=== PATIENT | female | born 1950 | race Caucasian/White ===

== ENCOUNTER 2018-01-02 08:41 | Day surgery (SDC) | END 2018-01-02 15:37 | disposition home or self-care (01) ==

== ENCOUNTER 2018-07-19 08:46 | Day surgery (SDC) | END 2018-07-19 11:30 | disposition home or self-care (01) ==

== ENCOUNTER 2018-12-06 06:04 | Day surgery (SDC) | payer MEDICARE, OTHER ==
[~2018-12-06] VITALS: Ht 160 cm; Wt 82.2 kg
[~2018-12-06 06:04] MED LIST: AMLO5TAB4 PO; ASPI81TA52 PO; CALC1TAB93 PO; FER325 PO; FURO-110 PO; GLIP10TA14 PO; INSU100I12 SQ; LINA5TAB PO; LISI-471 PO; MAGN400T28 PO; METF500T24 PO; PANT40TA3 PO; POTA20TA15 PO; [UNRECOGNIZED DRUG - CODE] PO
[2018-12-06 07:00] VITALS: Ht 160 cm; Wt 82.2 kg
[2018-12-06] MEDS ORDERED: BENADRYL PRN (07:18)
[2018-12-06] MEDS ORDERED: IBUPROFEN PRN (07:18)
[2018-12-06] MEDS ORDERED: PREMARIN (07:18)
[2018-12-06] MEDS ORDERED: DOXYCYCLINE (07:19)
[2018-12-06 07:28] VITALS: BP 142/65; PULSE 56; RESP 19
--- NOTE | 2018-12-06 07:30 | PREAC ---
Date/Time of Note Date/Time of Note DATE: 12/06/18 TIME: 07:29 Anesthesia Eval and Record Evaluation Time Pre-Procedure Interview DATE: 12/06/18 TIME: 07:29 Age 68 Sex female NPO: 8 hrs Preoperative diagnosis esophageal varices Planned procedure EGD Past Medical History Past Medical History: Includes Cardio: HTN Endo: Diabetes Pulm: Sleep Apnea, Asthma Neuro: Peripheral neuropathy Musculoskeletal: Osteoarthritis Hepatic: Hepatitis, Cirrhosis, Other (HEPC) GI: Obesity Heme: Anemia Psych: Depression, Anxiety Infection(s): Hep C Surgery & Anesthesia Issues No known issue Meds Anticoagulation: No Beta Mckayla within 24 hr: No Reason Beta Mckayla not given: Pt. not on B-Mckayla Reported Medications [Doxycycline] No Conflict Check 12/06/18 [Premarin] No Conflict Check 12/06/18 [Ibuprofen Prn] No Conflict Check 12/06/18 [Benadryl Prn] No Conflict Check 12/06/18 Insulin Lispro (Humalog Kwikpen U-100) 100 Unit/1 Ml Insuln.pen, 18 UNIT SQ AC DINNER, EA 07/19/18 Insulin Lispro (Humalog Kwikpen U-100) 100 Unit/1 Ml Insuln.pen, 20 UNIT SQ AC BREAKFAST, EA 07/19/18 Linagliptin (TRADJENTA) 5 Mg Tablet, 5 MG PO DAILY, TAB 07/19/18 Metformin Hcl* (Metformin Hcl*) 500 Mg Tablet, 500 MG PO WITH BREAKFAST DINNE, #60 TAB 07/19/18 Glipizide* (Glipizide*) 10 Mg Tablet, 10 MG PO AC BREAKFAST DINNER, TAB 07/19/18 Calcium Carbonate/Vitamin D3 (OYSTER SHELL 500 MG + VIT D TB) 1 Each Tablet, 1 EACH PO DAILY, TAB 07/19/18 Propranolol Hcl* (Inderal* LA) 120 Mg Cap.sa.24h, 120 MG PO DAILY, CAP 07/19/18 Magnesium Oxide* (Magnesium Oxide*) 400 Mg Tablet, 500 MG PO DAILY, TAB 07/19/18 Aspirin (Low Dose Aspirin) 81 Mg Tablet.dr, 81 MG PO DAILY, #30 TAB 07/19/18 Lisinopril* (Lisinopril*) 20 Mg Tablet, 20 MG PO DAILY, #30 TAB 07/19/18 Discontinued Reported Medications Ferrous Sulfate* (Ferrous Sulfate*) 325 Mg Tabec, 325 MG PO BID, TAB 07/19/18 Furosemide* (Lasix*) 20 Mg Tablet, 20 MG PO DAILY, TAB 07/19/18 Pantoprazole* (Protonix*) 40 Mg Tablet.dr, 40 MG PO DAILY, TAB 07/19/18 Potassium Chloride* (K-Dur*) 20 Meq Tab.prt.sr, 20 MEQ PO DAILY, TAB.SA 07/19/18 Amlodipine Besylate* (Norvasc*) 5 Mg Tablet, 5 MG PO DAILY, TAB 07/19/18 Meds reviewed: Yes Allergies Coded Allergies: hydroxyzine HCl (Verified Adverse Reaction, Mild, NAUSEA; DIZZINESS, 07/19/18) morphine (Verified Adverse Reaction, Unknown, N/V, 07/19/18) nitrofurantoin (Verified Adverse Reaction, Unknown, N/V, 07/19/18) Allergies Reviewed: Yes Labs/Studies Labs Reviewed: Reviewed by anesthesiologist test: Negative Studies: ECG, CXR Pre-procedure Exam Airway: Adequate mouth opening, Adequate thyromental dist Mallampati: Mallampati III Teeth: Normal Lung: Normal Heart: Normal ASA Physical Status ASA physical status: 3 Emergency: None Planned Anesthetic General/MAC: MAC Planned Pain Management Parenteral pain med Pre-operative Attestations Prior to commencing anesthesia and surgery, the patient was re-evaluated, there was verification of: *The patient's identity *The results of appropriate recent lab work and preoperative vital signs *The above evaluation not changing prior to induction *Anesthetic plan, risk benefits, alternative and complications discussed with patient/family; questions answered; patient/family understands, accepts and wishes to proceed. TOPHER XAVIER MD Dec 06, 2018 07:30
[2018-12-06] MEDS ORDERED: CIPROFLOXACIN 400MG/D5W 200 ML ONE (07:32)
[2018-12-06] MEDS ORDERED: LIDOCAINE 100 MG SYRINGE ONE (08:29)
[2018-12-06] MEDS ORDERED: PROPOFOL 60 ML ONE (08:29)
[2018-12-06 09:15] VITALS: BP 107/67; RESP 20
== END 2018-12-06 10:50 | disposition home or self-care (01) ==
LOC: GIL 06:04
PROVIDERS: ATTEND Internal Medicine Gastroenterology
DX: I85.00 Esophageal varices without bleeding (principal); K31.89 Other diseases of stomach and duodenum; I10 Essential (primary) hypertension; E11.9 Type 2 diabetes mellitus without complications; J45.909 Unspecified asthma, uncomplicated; Z79.84 Long term (current) use of oral hypoglycemic drugs; Z79.4 Long term (current) use of insulin
CPT/HCPCS: 43235; 82962; J0744; J2001